=== PATIENT | female | born 1980 | race Caucasian/White ===

== ENCOUNTER 2016-08-29 06:39 | Day surgery (SDC) | payer BC ==
[~2016-08-29 06:39] MED LIST: Famotidine IV* 10 MG/ML 2 ML (20 mg) IV ONE; Metoclopramide TAB* 10 MG PO ONE
[2016-08-29] MEDS ORDERED: Buffered Lidocaine 0.9% SYRIN* 5 ML/SYR SYRINGE ONE (06:42)
[2016-08-29] MEDS ORDERED: Metoclopramide TAB* 10 MG ONE (06:42)
[2016-08-29] MEDS ORDERED: Famotidine IV* 10 MG/ML 2 ML (20 mg) ONE (06:42)
[2016-08-29 07:11] LABS: UR Preg Kit Lot# 6090065
[2016-08-29 07:12] LABS: Manual Entry Verification AS; UR Preg Internal Control QC Line Present
[2016-08-29] MEDS ORDERED: Bupivacaine 0.25% SDV* 30 ML ONE (07:13)
[2016-08-29] MEDS ORDERED: Ketorolac INJ* 30 MG/ML 1 ML VIAL ONE (07:25)
[2016-08-29] MEDS ORDERED: Dexamethasone IV* 4 MG/ML 1 ML (4 MG) ONE (07:25)
[2016-08-29] MEDS ORDERED: fentaNYL* 50 MCG/ML 2 ML VIAL (100 MCG VIAL) ONE (07:25)
[2016-08-29] MEDS ORDERED: Propofol* 10 MG/ML 20 ML BTL IV PUSH ONE (07:25)
[2016-08-29] MEDS ORDERED: Ondansetron INJ* 2 MG/ML VIAL ONE (07:25)
[2016-08-29] MEDS ORDERED: Lidocaine 2% PF * 5 ML VIAL ONE (07:25)
[2016-08-29] MEDS ORDERED: KETAMINE HCL* 50 MG/ML 10 ML VIAL ONE (07:26)
[2016-08-29] MEDS ORDERED: Midazolam* 1 MG/ML 5 ML VIAL (5 MG) ONE (07:26)
[2016-08-29] MEDS ORDERED: Cisatracurium* 2 MG/ML MDV 5 ML ONE (07:26)
[2016-08-29] MEDS ORDERED: Scopolamine 1.5 mg* PATCH TRANSDERM ONE (07:37)
[2016-08-29] MEDS ORDERED: Scopolamine 1.5 mg* PATCH ONE (07:37)
[2016-08-29] MEDS ORDERED: Levalbuterol 0.63MG/3ML NEB INH PRN (08:25)
[2016-08-29] MEDS ORDERED: DiMENhydriNATE IV* 50 MG/ML VIAL IV PUSH PRN (08:25)
[2016-08-29] MEDS ORDERED: Ondansetron INJ* 2 MG/ML VIAL IV PRN (08:25)
[2016-08-29] MEDS ORDERED: fentaNYL* 50 MCG/ML 2 ML VIAL (100 MCG VIAL) IV PRN (08:25)
[2016-08-29] MEDS ORDERED: Neostigmine Methylsulfate* 2 MG/2 ML SYRINGE ONE (08:27)
[2016-08-29] MEDS ORDERED: Glycopyrrolate IV* 0.2 MG/ML 1 ML VIAL ONE (08:27)
[2016-08-29 10:55] VITALS: BP 96/64
--- NOTE | 2016-08-30 08:29 | OP ---
DATE OF OPERATION: 08/29/16 [facility] DATE OF : 80 SURGEON: Daya Mueller MD ANESTHESIOLOGIST: Dr. Ward. ANESTHESIA: General endotracheal. PRE-OP DIAGNOSIS: Satisfied parity. POST-OP DIAGNOSIS: Satisfied parity. OPERATIVE PROCEDURE: Laparoscopic bilateral tubal ligation using bipolar energy. ESTIMATED BLOOD LOSS: Less than 10 cc. URINE OUTPUT: 100 cc. IV FLUIDS: 1300 cc of lactated Ringer's. MATERIALS TO LAB: None. INDICATIONS: This patient was a 36-year-old 2, para 2, who presented to the office requesting permanent sterilization. The patient had two prior children and was absolutely sure she did not desire any additional child bearing. We discussed the options of long-term contraception and permanent sterilization and she desired to proceed with a laparoscopic bilateral tubal ligation. She also desired to have bipolar energy destruction of the tubes as opposed to Filshie clips. She was extensively counseled and consent was signed. FINDINGS: Normal-appearing uterus, fallopian tubes, and ovaries. Remainder of the pelvis also appeared normal. COMPLICATIONS: None. DESCRIPTION OF PROCEDURE: The risks, benefits, and alternatives were described to the patient, and informed consent was obtained. The patient was taken to the operating room with IV running where general anesthesia was induced and found to be adequate. The patient was prepped and draped in normal-sterile fashion in the low lithotomy position and Nick stirrups. A time-out was performed. The bladder was emptied. A bivalve speculum was placed in the vagina and a Hulka tenaculum was placed through the cervix into the uterus. The speculum was then removed. Attention was then turned to the abdomen. 0.25% Marcaine was then injected into the skin of the umbilicus as well as 2-cm above the pubic symphysis. A 5 mm skin incision was made with a scalpel in the umbilicus. A bladeless 5mm trocar was then inserted through the incision and into the peritoneal cavity without difficulty. The skin was elevated using penetrating towel clamps. Once the trocar was in the abdominal cavity, the abdomen was insufflated with carbon dioxide gas to a maximum pressure of 15 mmHg. Using the camera, the area below the trocar placement was carefully inspected and there was no evidence of trauma or bleeding. The clamps were removed from the skin. The patient was placed in the Trendelenburg position. A second incision about 5 mm in length was placed 2 cm above the pubic symphysis in a transverse fashion. Another 5-mm blunt trocar was also placed through this incision and into the abdominal cavity without difficulty. Using the Hulka tenaculum for manipulation, the uterus was elevated and well visualized. The structures appeared normal. The patient's right fallopian tube was grasped with the [employer] instrument, and bipolar energy was used to fully coagulate the tissue of the tube from the mid-isthmic region to the fibriated ends. A resistance meter was used to determine when the tissue had been fully destroyed. The same was then performed on the patient's left tube, also with good results. The trocars were removed from the abdomen after the gas was allowed to escape. The skin was reapproximated using 4-0 Monocryl in a subcuticular stitch, and the incisions were then overlaid with Dermabond skin adhesive. The tenaculum was then removed from the cervix as well, and there was only light bleeding from the vagina at that time. The patient was returned to the supine position and allowed to awaken. The patient tolerated the procedure well. Sponge, lap, and needle counts were correct x2. [id number]/[facility] #: [id number] MTDD
[2016-09-01] MEDS ORDERED: Scopolomine PATCH Remove* 1 NOTE MISC PATCH OFF ONE (07:38)
== END 2016-08-29 10:56 | disposition home or self-care (01) ==
LOC: OR 06:39
PROVIDERS: ATTEND Obstetrics & Gynecology
DX: Z30.2 Encounter for sterilization (principal); J45.909 Unspecified asthma, uncomplicated; Z88.5 Allergy status to narcotic agent
CPT/HCPCS: 36415; 81025; 86850; 86900; 86901; A9270-GY; J1100; J1885; J2250; J2405; J2704; J3010

== ENCOUNTER 2018-09-01 09:55 | Emergency (ER) | payer BC ==
[2018-09-01] MEDS ORDERED: Ketorolac INJ* 60 MG/2 ML VIAL IM ONE (10:18)
--- NOTE | 2018-09-01 10:20 | ED ---
Upper Extremity Pain - HPI Summary HPI Summary: This pt is a 38 y/o female presenting to [facility] c/o RIGHT arm pain s/p injury yesterday. Pt reports she was holding a horse trailer door for a horse with her right hand when she heard a commotion and put her head up to see if her friend was ok. She states she was holding the door with her right hand with her fingers pointing up while bending her elbow. Suddenly the horse came towards the door and shoved her right arm "backwards." She notes her right arm was very swollen yesterday. Pt states she has numbness/tingling in her right arm from the tip of her fingers up to her elbow. She is able to move her fingers. Pt has decreased ROM in her right arm and her pain is aggravated with movement. Pt reports her shoulder is tender but not as painful as her arm. Denies any other injuries or complaints. - History of Current Complaint Chief Complaint: EDExtremityUpper Stated Complaint: RT ELBOW INJ PER PT Time Seen by Provider: 09/01/18 10:12 Hx Obtained From: Patient Mechanism Of Injury: Blunt Trauma Onset/Duration: Started Days Ago - 1, Still Present Timing: Lasting Days - 1 Severity Currently: Severe Pain Location: Arm - right Character: Aching Aggravating Factor(s): Movement, Flexion, Internal/External Rotation Alleviating Factor(s): Rest Associated Signs & Symptoms: Positive: Swelling, Numbness/Tingling. Negative: Fever Related History: Occupational Injury - Allergies/Home Medications Allergies/Adverse Reactions: Allergies Allergy/AdvReac Type Severity Reaction Status Date / Time iohexol [From Omnipaque] Allergy Hives Verified 09/01/18 10:02 morphine Allergy Anaphylatic Verified 09/01/18 10:02 Shock Home Medications: Home Medications Cetirizine* [ZyrTEC 10 MG TAB*] 10 mg PO DAILY 09/01/18 [History Confirmed 09/01] PMH/Surg Hx/FS Hx/Imm Hx Endocrine/Hematology History: Denies: Hx Diabetes Cardiovascular History: Denies: Hx Hypertension Respiratory History: Reports: Hx Asthma History: Denies: Hx Renal Disease Musculoskeletal History: Reports: Hx Arthritis - knee Sensory History: Reports: Hx Contacts or Glasses - contacts Denies: Hx Hearing Aid Opthamlomology History: Reports: Hx Contacts or Glasses - contacts - Cancer History Hx Chemotherapy: No - Surgical History Surgery Procedure, Year, and Place: Multiple bone surgeries both legs, 1984, 1993, 1994 Hx Anesthesia Reactions: No Infectious Disease History: No Infectious Disease History: Denies: Traveled Outside the [place] in Last 30 Days - Family History Known Family History: Positive: Cardiac Disease - father with VT - Social History Alcohol Use: Occasionally Substance Use Type: Reports: Marijuana Substance Use Comment - Amount & Last Used: occassionally Smoking Status (MU): Never Smoked Tobacco Review of Systems Negative: Fever Cardiovascular: Negative Respiratory: Negative Gastrointestinal: Negative Musculoskeletal: Other - POS: right arm pain Positive: Decreased ROM - right arm, Edema - right arm Positive: Numbness - right arm All Other Systems Reviewed And Are Negative: Yes Physical Exam - Summary Physical Exam Summary: VITAL SIGNS: Reviewed. GENERAL: Patient is a well-developed and nourished female who is lying comfortable in the stretcher. Patient is not in any acute respiratory distress. HEAD AND FACE: No signs of trauma. No ecchymosis, hematomas or skull depressions. No sinus tenderness. EYES: PERRLA, EOMI x 2, No injected conjunctiva, no nystagmus. EARS: Hearing grossly intact. Ear canals and tympanic membranes are within normal limits. MOUTH: Oropharynx within normal limits. NECK: Supple, trachea is midline, no adenopathy, no JVD, no carotid bruit, no c- spine tenderness, neck with full ROM. CHEST: Symmetric, no tenderness at palpation LUNGS: Clear to auscultation bilaterally. No wheezing or crackles. CVS: Regular rate and rhythm, S1 and S2 present, no murmurs or gallops appreciated. ABDOMEN: Soft, non-tender. No signs of distention. No rebound no guarding, and no masses palpated. Bowel sounds are normal. EXTREMITIES: RUE: swollen in the proximal area of the forearm. Decreased ROM from the elbow down to the fingers. Decreased sensation. Pulses are good. NEURO: Alert and oriented x 3. No acute neurological deficits. Speech is normal and follows commands. SKIN: Dry and warm Triage Information Reviewed: Yes Vital Signs On Initial Exam: Initial Vitals Temp Pulse Resp BP Pulse Ox 97.7 F 73 16 114/87 99 09/01/18 09:57 09/01/18 09:57 09/01/18 09:57 09/01/18 09:57 09/01/18 09:57 Vital Signs Reviewed: Yes Diagnostics - Vital Signs Vital Signs Temp Pulse Resp BP Pulse Ox 09/01/18 09:57 97.7 F 73 16 114/87 99 - Laboratory Result Diagrams: 09/01/18 12:04 09/01/18 12:04 Lab Statement: Any lab studies that have been ordered have been reviewed, and results considered in the medical decision making process. - Radiology Right hand XR Radiology Interpretation Completed By: Radiologist Summary of Radiographic Findings: IMPRESSION: No fracture of the right hand is noted. Dr. Saldaña has reviewed this report. Right elbow XR Radiology Interpretation Completed By: Radiologist Summary of Radiographic Findings: IMPRESSION: Degenerative changes are noted without joint effusion or fracture. Dr. Saldaña has reviewed this report. 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 No fracture is noted. Dr. Saldaña has reviewed this report. Right shoulder XR Radiology Interpretation Completed By: Radiologist Summary of Radiographic Findings: IMPRESSION: No fracture of the right shoulder is noted. Dr. Saldaña has reviewed this report. Right wrist XR Radiology Interpretation Completed By: Radiologist Summary of Radiographic Findings: IMPRESSION: Degenerative change of the first carpal metacarpal joint. No fracture is identified. Dr. Saldaña has reviewed this report. Re-Evaluation - Re-Evaluation First Eval Re-Evaluation Time: 13:48 Change: Unchanged Comment: Pt still with right upper extremity pain. Will consult with orthopedics. Second Eval Re-Evaluation Time: 14:54 Change: Worse Comment: Patient reports her pain is getting worse. Third Eval Re-Evaluation Time: 15:00 Comment: Dr. Dolan, orthopedist, at bedside to evaluate pt. Course/Dx - Course Assessment/Plan: This pt is a 38 y/o female presenting to [facility] c/o RIGHT arm pain s/p injury yesterday. Pt reports she was holding a horse trailer door for a horse with her right hand when she heard a commotion and put her head up to see if her friend was ok. She states she was holding the door with her right hand with her fingers pointing up while bending her elbow. Suddenly the horse came towards the door and shoved her right arm "backwards." She notes her right arm was very swollen yesterday. Pt states she has numbness/tingling in her right arm from the tip of her fingers up to her elbow. She is able to move her fingers. Pt has decreased ROM in her right arm and her pain is aggravated with movement. Pt reports her shoulder is tender but not as painful as her arm. Denies any other injuries or complaints. Elbow x ray IMPRESSION: Degenerative changes are noted without joint effusion or fracture. Forearm x ray IMPRESSION: Deformity of the right radius likely due to prior metabolic disease. No fracture is noted. Hand x ray IMPRESSION: No fracture of the right hand is noted. Shoulder x ray IMPRESSION: No fracture of the right shoulder is noted. Wrist x ray IMPRESSION: Degenerative changes of the first carpal metacarpal joint. No fracture is identified. Blood work without a significant abnormality. In the ED course the patient was given Toradol for the pain and the symptoms have improved. Patients pain was getting worse, therefore, the patient was offered opiates however the patient declined. The patient only requested Tylenol. At approximately 3 PM the patients pain is getting worse she reports pain 10 out of 10 and she agreed to take Fentanyl. I discussed the case with Dr. Rm, orthopedist, who came and assessed the patient. He doesnt think that her injury is secondary to a compartment syndrome. He actually thinks that the patient has an injury in the radial nerve. Therefore he recommended Neurontin and Decadron. On reassessment the patient is feeling better therefore Dr. Dolan recommends for the patient to be discharged home with follow-up in his office in the next 2 weeks. Patient is feeling better and she is hemodynamically stable, alert and oriented x3. - Diagnoses Provider Diagnoses: Radial nerve injury - Physician Notifications Discussed Care of Patient With: Stef Dolan Time Discussed With Above Provider: 13:51 Instructed by Provider To: Other - Discussed the case with Dr. Dolan, orthopedist, who will see pt in the ED. Discharge - Sign-Out/Discharge Documenting (check all that apply): Patient Departure - Discharge home Patient Received Moderate/Deep Sedation with Procedure: No - Discharge Plan Condition: Stable Disposition: HOME Prescriptions: Gabapentin CAP(*) [Neurontin 300 CAP(*)] 300 mg PO BEDTIME #15 cap Patient Education Materials: Radial Nerve Palsy (ED) Referrals: Devan Hawthorne MD [Primary Care Provider] - Stef Dolan MD [Medical Doctor] - Additional Instructions: FOLLOW UP WITH YOUR PRIMARY CARE PROVIDER IN 2-3 DAYS. Also follow up with Dr. Dolan, orthopedist, in his office in the next 2 weeks. RETURN TO THE EMERGENCY DEPARTMENT FOR ANY WORSENING OR NEW SYMPTOMS, SUCH INCREASED PAIN, DECREASED PULSES, SHINY SKIN, PAIN OUT OF CONTROL. - Billing Disposition and Condition Condition: STABLE Disposition: Home - Attestation Statements Document Initiated by Scribsong: Yes Documenting Scribe: Kamilah Randle Provider For Whom Scribe is Documenting (Include Credential): Wes Saldaña MD Scribe Attestation: Kamilah Morrison, scribed for Wes Saldaña MD on 09/01/18 at 2104. Scribe Documentation Reviewed: Yes Provider Attestation: The documentation as recorded by the Kamilah champagne accurately reflects the service I personally performed and the decisions made by me, Wes Saldaña MD Status of Scribe Document: Viewed
[2018-09-01] MEDS ORDERED: Ketorolac INJ* 30 MG/ML 1 ML VIAL IV PUSH ONE (10:30)
[2018-09-01 12:24] LABS: ABS Eosinophils 0.3 10^3/ul (0-0.6); ABS Monocytes 0.9 10^3/ul (0-0.8); ABS Neutrophils 4.6 10^3/ul (1.5-7.7); Eosinophil % 3.7 %; Hematocrit 39 % (35-47); Hemoglobin 12.9 g/dL (12.0-16.0); Lymphocyte % 25.4 %; Mean Corpuscular HGB Conc 33 g/dL (31-36); Mean Corpuscular Hemoglobin 32 pg (27-31); Mean Corpuscular Volume 95 fL (80-97); Mean Platelet Volume 7.4 fL (7.4-10.4); Platelet Count 281 10^3/uL (150-450); Red Blood Count 4.08 10^6 /uL (3.70-4.87); Red Cell Distribution Width 13 % (10-15); White Blood Count 7.8 10^3/uL (3.5-10.8)
[2018-09-01 12:34] LABS: Albumin/Globulin Ratio 1.3 (1-3); BUN/Creatinine Ratio 20.3 (8-20); C Reactive Protein 1.07 mg/L (<8.01); Calcium 9.1 mg/dL (8.6-10.3); EGFR African American 115.2 (>60); EGFR Non-African American 95.2 (>60); Globulin 3.1 g/dL (2-4); Potassium 4.8 mmol/L (3.5-5.0); Total Bilirubin 0.5 mg/dL (0.2-1.0); Total Protein 7.1 g/dL (6.4-8.9)
[2018-09-01] MEDS ORDERED: Acetaminophen TAB* 325 MG PO ONE (13:46)
[2018-09-01] MEDS ORDERED: fentaNYL* 50 MCG/ML 2 ML VIAL (100 MCG VIAL) IV SLOW PU ONE (14:54)
[2018-09-01] MEDS ORDERED: Gabapentin CAP(*) 300 MG PO ONE (15:12)
[2018-09-01] MEDS ORDERED: Dexamethasone IV* 4 MG/ML 1 ML (4 MG) IV SLOW PU ONE (15:21)
[2018-09-01 17:01] VITALS: BP 117/68
--- NOTE | 2018-09-02 09:13 | CONS ---
ORTHOPEDIC CONSULT: DATE OF CONSULT: 09/01/18 - EMERGENCY DEPT ATTENDING PHYSICIAN: Stef Dolan MD. CHIEF COMPLAINT: Right arm. HISTORY OF PRESENT ILLNESS: Ms. Richards is a 38-year-old female who is right hand dominant. Yesterday, she was helping her friend load her horse into the trailer and there was a big thump and she came up to door to see what had happened. She was coming with her hand coming forward and the horse ended up forcing the door outwards which impacted into her hand, forcing the wrist into dorsiflexion and the arm backwards. She did not fall or have the arm then strike anything else. It was sore, but she was able to continue with activities , but the arm had slowly increasing pain over that afternoon. She reports she had the overnight shift, and as a result could not just back out of that an hour or two beforehand, so she had worked her overnight shift and then came to the emergency room this morning. She had increasing pain with pain radiating from the inner side of the elbow down along the arm and out into the fingers. She runs her hand right along the ulnar nerve distribution. She had been seen initially here in the emergency room and x-rays were taken which were read as negative for fracture. She initially had refused pain medication, but after being here for a little while, she then reported increasing pain. She was also reexamined and when Dr. Saldaña brought her wrist into extension, he found she had pain with passive motion. Similarly she had been moving her hand spontaneously better prior to this. Because of the paraesthesias and pain with passive motion, he had called me in the office and as he was concerned about a compartment syndrome; therefore, I came from the office to see her. When I first saw her, she was cradling. She has never had any troubles like this with the arm before. PREVIOUS MEDICAL HISTORY: Vitamin B deficiency/questionable resistance. PREVIOUS SURGICAL HISTORY: Lower extremities 1984, 1993, knee arthroscopy in 1994. CURRENT MEDICATIONS: None. MEDICATION ALLERGIES: OMNIPAQUE and MORPHINE. FAMILY HISTORY: Noncontributory. SOCIAL HISTORY: Noncontributory. REVIEW OF SYSTEMS: Other than her arm, she has no complaints of any other organ systems. PHYSICAL EXAM: General: Mature female, no apparent distress but cradling her right arm. She was moving from the chair to get her chocolate milk once again. She was unable to climb back up and on to the stretcher without any assistance. HEENT: Normocephalic, no ecchymosis, erythema, lacerations, or abrasions about head or face. Extraocular muscles are intact. Neck: Supple. Trachea midline. Cardiovascular: S1, S2. Lungs: Clear. Extremities: Right upper, she has some swelling just above the medial epicondyle more posteriorly towards the medial side of her triceps. She is very tender if I try to palpate directly over the cubital tunnel. Similarly if I come upwards along the medial border of the triceps, I can recreate her radiating symptoms. She is a bit heavy set, so there is a fullness to the forearm in addition, but it is difficult to say if there was any particular swelling. There is no ecchymosis and the skin is intact. With palpation of the musculature, she is a bit sore as do so but there is no firmness at all to the compartments. She is exquisitely tender if I come right along the bare area of the ulna. She can barely wiggle her fingers a little bit and if I passively flex and extend the fingers she does not have pain but rather with the thumb and index finger, I recreate paraesthesias into the ulnar side of the hand. As I wiggle the little finger, she reports that actually did not hurt at all. Palpating about the hand , found no tenderness and there was no swelling, so there was no hand compartment. DIAGNOSTIC STUDIES/LAB DATA: X-ray of the entire arm including hand, wrist, elbow and shoulder are available for review. It could be seen she has some degenerative changes about the elbow with some spurring and a small cyst which I did show to her. ASSESSMENT: Right arm ulna nerve irritation. PLAN: I frankly talked with Ms. Richards and discussed with her that I do not believe she has a compartment. She has gone through compartment measurements previously and understood with the discussion that we were having. I did have the quick stick available. I discussed with her that I believe this is much more ulnar nerve irritation. The plan we came through as she has already had a dose of Toradol, we would give her dose of oral gabapentin 300 mg. Initially, I had recommended Toradol, but the ER attendant reported she had gotten 60 mg approximately 4 hours ago. He reports that they will give a dose of IV steroids to help with bad rotator cuff tendinitis or calcific tendinitis which sometimes does make a difference for people. He was very comfortable administrating that dose. I then saw her an hour after those doses and she could now easily wiggle her fingers spontaneously, move the wrist and was clearly much more comfortable. I discussed with her that if she has increasing pain that she does need to return, but that this does appear to be much more of an ulnar nerve irritation. Considering that she did not have a direct blow to the ulnar nerve this should improve. She was discharged home on 300 mg of gabapentin every evening. She should followup in the office next week, if she still having symptoms. Considering that she may need to have her cubital tunnel addressed, I discussed with her following up with one of our hand surgeons. [id number] #: [id number] ELIU
== END 2018-09-01 16:57 | disposition home or self-care (01) ==
LOC: ED 09:55
DX: S54.21XA Injury of radial nerve at forearm level, right arm, initial encounter (principal); X50.1XXA Overexertion from prolonged static or awkward postures, initial encounter; Y92.89 Other specified places as the place of occurrence of the external cause; Z88.5 Allergy status to narcotic agent; Z91.041 Radiographic dye allergy status
CPT/HCPCS: 36415; 80053; 82550; 83605; 85025; 86140; 96374; 96375; 99283; A9270-GY; J1100; J1885; J3010

== ENCOUNTER 2019-01-03 08:57 | Emergency (ER) | payer BC ==
[2019-01-03 09:06] VITALS: BP 132/95
[2019-01-03] MEDS ORDERED: Lidocaine 1% MPF ** 5 ML VIAL INJ ONE (09:45)
--- NOTE | 2019-01-03 09:46 | ED ---
Skin Complaint - HPI Summary HPI Summary: Patient is a 38-year-old female who presents emergency department for painful lump and redness to left buttocks times several days. Patient states she noticed a small painful bump to her left buttocks that has progressed to more painful and red. Patient is unsure if she was bit by insects or potentially had a pimple to the area. Patient denies fever, chills, nausea, vomiting. No significant past medical history. Symptoms are mild in severity. Touching area makes symptoms worse. Nothing makes symptoms better. - History of Current Complaint Chief Complaint: EDRashSkinAbscess Time Seen by Provider: 01/03/19 09:19 Stated Complaint: LUMP ON GLUTE PER PT Hx Obtained From: Patient Pain Intensity: 7 - Allergy/Home Medications Allergies/Adverse Reactions: Allergies Allergy/AdvReac Type Severity Reaction Status Date / Time iohexol [From Omnipaque] Allergy Hives Verified 01/03/19 09:02 morphine Allergy Anaphylatic Verified 01/03/19 09:02 Shock PMH/Surg Hx/FS Hx/Imm Hx Previously Healthy: Yes Endocrine/Hematology History: Denies: Hx Diabetes Cardiovascular History: Denies: Hx Hypertension Respiratory History: Reports: Hx Asthma History: Denies: Hx Renal Disease Musculoskeletal History: Reports: Hx Arthritis - knee Sensory History: Reports: Hx Contacts or Glasses - contacts Denies: Hx Hearing Aid Opthamlomology History: Reports: Hx Contacts or Glasses - contacts - Cancer History Hx Chemotherapy: No - Surgical History Surgery Procedure, Year, and Place: Multiple bone surgeries both legs, 1984, 1993, 1994 Hx Anesthesia Reactions: No Infectious Disease History: No Infectious Disease History: Denies: Traveled Outside the [place] in Last 30 Days - Family History Known Family History: Positive: Cardiac Disease - father with MA, Non- Contributory - Social History Occupation: Employed Full-time Lives: With Family Alcohol Use: Occasionally Substance Use Type: Reports: Marijuana Substance Use Comment - Amount & Last Used: occassionally Smoking Status (MU): Never Smoked Tobacco Review of Systems Constitutional: Negative Negative: Fever, Chills Gastrointestinal: Negative Positive: Other - redness and swelling to left buttocks. All Other Systems Reviewed And Are Negative: No Physical Exam Triage Information Reviewed: Yes Vital Signs On Initial Exam: Initial Vitals Temp Pulse Resp BP Pulse Ox 97.7 F 88 16 132/95 100 01/03/19 08:59 01/03/19 08:59 01/03/19 08:59 01/03/19 08:59 01/03/19 08:59 Vital Signs Reviewed: Yes Appearance: Positive: Well-Appearing - Pt. lying on bed in NAD. Skin: Positive: Warm, Dry, Other - Noted to left lower buttocks there is an area roughly 7cm in diameter of hot erythema. In the center there is a roughly 2cm area of induration with a central pinpoint wound. Area tender to tough. To note extend to perineum. Head/Face: Positive: Normal Head/Face Inspection Eyes: Positive: Normal, EOMI Neck: Positive: Supple Neurological: Positive: Normal, CN Intact II-III Psychiatric: Positive: Affect/Mood Appropriate Procedures - Sedation Patient Received Moderate/Deep Sedation with Procedure: No - Incision and Drainage Left Lower Buttocks Site: Left lower buttocks Anesthesia: Local, Lidocaine Instrument(s): Scalpel Diagnostics - Vital Signs Vital Signs Temp Pulse Resp BP Pulse Ox 01/03/19 08:59 97.7 F 88 16 132/95 100 - Laboratory Lab Statement: Any lab studies that have been ordered have been reviewed, and results considered in the medical decision making process. Course/Dx - Course Course Of Treatment: Patient with abscess cellulitis to left buttocks. Area was incised and drained, a small amount of purulent matter was expressed. Wound culture sent. Packing was not placed. We'll place on doxycycline. Advised to continue warm compresses. To follow-up with PCP for wound check in 2 -3 days. To return to the ER for increased redness, pain, swelling or if concerns. Patient understands and agrees with plan. - Differential Diagnoses - Skin Complaint Differential Diagnoses: Abscess, Cellulitis - Diagnoses Provider Diagnoses: Cellulitis and abscess of buttock, Encounter for incision and drainage procedure Discharge ED - Sign-Out/Discharge Documenting (check all that apply): Patient Departure - Discharge Plan Condition: Good Disposition: HOME Prescriptions: DOXYcycline CAP(*) [DOXYcycline 100MG CAP(*)] 100 mg PO DAILY #20 cap Patient Education Materials: Cellulitis (ED), Abscess (ED) Forms: *Work Release Referrals: Devan Hawthorne MD [Primary Care Provider] - Additional Instructions: Follow up with PCP in 2-3 days for wound check Antibiotic as directed Apply warm compresses Tylenol or Motrin for pain as directed Return to ER for fever, increased pain/redness, fever, or if concerned - Billing Disposition and Condition Condition: GOOD Disposition: Home
--- NOTE | 2019-01-05 05:54 | ED ---
Imaging and Labs Follow Up Follow Up Type: Labs/Cultures Labs/Culture Result: Wound culture MRSA + Patient Communication/Plan: Pt. treated with doxycycline, should cover mrsa. Pending final culture and sensitivity. Provider Diagnoses: Cellulitis and abscess of buttock, Encounter for incision and drainage procedure
== END 2019-01-03 10:41 | disposition home or self-care (01) ==
LOC: ED 08:57
DX: L02.31 Cutaneous abscess of buttock (principal); L03.317 Cellulitis of buttock; J45.909 Unspecified asthma, uncomplicated; Z88.5 Allergy status to narcotic agent; Z91.041 Radiographic dye allergy status
CPT/HCPCS: 10060; 87070; 87077; 87186; 87205; 87640; 87641; 99282